=== PATIENT | female | born 1955 | race Caucasian/White ===

== ENCOUNTER 2016-10-26 06:41 | Day surgery (SDC) | payer BC ==
[~2016-10-26 06:41] MED LIST: ACETAMINOPHEN 1000MG/100 ML PREMIX IV ONE; CLINDAMYCIN 600MG/50ML PREMIX 50 ML IVPB ONE; FAMOTIDINE 20MG TABLET PO ONE; HYDROMORPHONE HCL 0.8 GM in 0.9 % SODIUM CHLORIDE 10ML VIA 40 ML IV ONE; HYDROMORPHONE HCL/PF 0.002 MG in 0.9 % SODIUM CHLORIDE 10ML VIA 0.998 ML IVP ONE; MECLIZINE 25 MG TABLET PO ONE; METOCLOPRAMIDE 10 MG TABLET PO ONE
--- NOTE | 2016-10-26 07:25 | History and Physical Report ---
DATE OF EVALUATION: 10/25/2016. CHIEF COMPLAINT AND HISTORY OF CHIEF COMPLAINT: This patient presented to the clinic approximately three to five days ago. She had been advised on 2015 that an unopened wound above the pump on the left side warranted relocation of the pump. According to the patient, over the last number of months since that evaluation, she had been hospitalized and was quite ill with pneumonia. She had been on multiple medications and had been hospitalized. When she presented three to five days ago, the wound had completely opened, and the upper aspect of the pump was showing. Careful examination of the wound showed no drainage or purulent discharge. Some mild erythematous changes of the skin were noted. Her spinal infusion is hydromorphone 6.0 mg per day. Although she was scheduled for a refill, no refill was performed and she was scheduled for today's removal and replacement. PAST MEDICAL HISTORY: Chronic bronchitis, hypertension, gastritis, degenerative arthritis. REVIEW OF SYSTEMS: The patient seems appropriate and in no acute distress and is afebrile. The remainder of the systems review shows headaches, blood pressure problems, peripheral edema, fibromyalgia, difficulty sleeping. SOCIAL HISTORY: Cigarette smoking. FAMILY HISTORY: Coronary artery disease, hypertension. PAST SURGICAL HISTORY: Cervical laminectomy fusion, carpal tunnel surgery, pump implant. ALLERGIES: To be provided. MEDICATIONS ON ADMISSION: To be provided. PHYSICAL EXAMINATION: General: Height is 5 feet, 3 inches. Weight is 170 pounds. Vital Signs: Unavailable. HEENT: Within normal limits. Lungs: Clear. Heart: Regular rate and rhythm. Abdomen: Nontender. Musculoskeletal: Examination of the musculoskeletal system shows the pump in the left posterior gluteal margin. The pump catheter port is easily visualized through the skin. There are some mild erythematous changes noted, but no suggestion or indication of drainage. She is currently on Levaquin which she has been taking for approximately one month. The midline catheter site incision is intact. Sensory valenzuela are intact. Neurologic: Cranial nerves are intact. IMPRESSIONS: 1. POSTCERVICAL LAMINECTOMY SYNDROME, ICD10 CODE M96.1. 2. CERVICAL RADICULITIS, ICD10 CODE M54.13. 3. INTRASPINAL INFUSION SYSTEM WITH HYDROMORPHONE WITH POUCH BREAKDOWN. PLANS: At this point I have indicated to the patient that she has several options which will not be known until we are in the operating room. If the pouch is opened, and there are no indications of obvious infection, the pump and the catheter will be removed from the left side. Cultures will be taken in the pump pouch, the catheter will be removed and also submitted for culturing, and cerebrospinal fluid analysis will also be performed. A pump will be placed on the opposite right side and a new catheter positioned. The infusion will then be started. On the other hand, if the pouch is opened and there is any suggestion of infection, the pump and catheter will be removed and no new pump will be placed. At that point she will be kept overnight and most likely in- house and monitored for withdrawal and managed with appropriate opiates and intravenous medications until stable. She will then be discharged, at which point the new pump catheter will be placed once the incision site is fully healed. All of the above have been suggested and recommended to the patient and will be evaluated on the date of the surgery. Farhad Gonzalez D.O. Date Time JOB NUMBER: [id number] cc: Reinaldo Cabrera
[2016-10-26] MEDS ORDERED: TEMAZEPAM 15 MG CAPSULE PO PRN ×2 (09:42)
[2016-10-26] MEDS ORDERED: AL HYDROX/MAG HYDROX 30ML UD PO PRN (09:42)
[2016-10-26] MEDS ORDERED: ACETAMINOPHEN 325 MG TAB PO PRN ×2 (09:42)
[2016-10-26] MEDS ORDERED: OXYCODONE/APAP 10MG-325MG TABLET PO PRN ×2 (09:42)
[2016-10-26] MEDS ORDERED: DIPHENHYDRAMINE HCL 25 MG CAPSULE PO PRN ×2 (09:42)
[2016-10-26] MEDS ORDERED: HYDROMORPHONE HCL 2 MG/ML VIAL IM PRN (09:42)
[2016-10-26] MEDS ORDERED: SENNOSIDES/DOCUSATE SODIUM UD CAPSULE PO PRN ×2 (09:42)
[2016-10-26] MEDS ORDERED: DIPHENHYDRAMINE HCL IV 50 MG/ML VIAL IVP PRN ×2 (09:42)
[2016-10-26] MEDS ORDERED: METOCLOPRAMIDE 10 MG TABLET PO PRN (09:42)
[2016-10-26] MEDS ORDERED: METOCLOPRAMIDE HCL 10 MG/2 ML VIAL IVP PRN (09:42)
[2016-10-26] MEDS ORDERED: HYDROMORPHONE HCL 1 MG/ML CPJ IM PRN (09:42)
[2016-10-26] MEDS ORDERED: HYDROCODONE/APAP 7.5/325MG TABLET PO PRN ×2 (09:42)
[2016-10-26] MEDS ORDERED: CHLORDIAZEPOXIDE 25 MG CAPSULE PO PRN (10:21)
[2016-10-26] MEDS ORDERED: ONDANSETRON 4 MG ODT TABLET SL PRN (10:22)
[2016-10-26] MEDS ORDERED: ALBUTEROL HFA 8 GM INHALER INH PRN (10:34)
[2016-10-26] MEDS: QUINAPRIL HCL 10 MG TABLET PO SCH (10:59)
[2016-10-26] MEDS: LEVOTHYROXINE SODIUM 100 MCG TABLET PO SCH (11:00)
[2016-10-26] MEDS: PIOGLITAZONE HCL 15 MG TABLET PO SCH (11:00)
[2016-10-26] MEDS: HYDROMORPHONE HCL 2MG TABLET PO PRN (14:56)
[2016-10-26] MEDS ORDERED: BUPIVACAINE 0.5% W/EPI MPF 30 ML VIAL IVP ONE (14:59)
[2016-10-26] MEDS ORDERED: CLINDAMYCIN 600MG/4 ML VIAL IV ONE (14:59)
[2016-10-26] MEDS ORDERED: HYDROMORPHONE HCL 2 MG/ML VIAL IV ONE (14:59)
[2016-10-26] MEDS ORDERED: LIDOCAINE 1% W/EPI 1:200,000 MPF 30ML SQ ONE (14:59)
[2016-10-26] MEDS: RINGERS SOLUTION,LACTATED 1,000 ML IV SCH ×2 (15:00→17:45)
[2016-10-26 16:06] LABS: CSF APPEARANCE CLEAR; CSF COLOR COLORLESS; CSF RBC 0 /mm3; CSF WBC 0 /uL
[2016-10-26] MEDS: CLINDAMYCIN 600MG/50ML PREMIX 50 ML IVPB SCH ×2 (16:20→23:40)
[2016-10-26] MEDS ORDERED: PROPOFOL 10 MG/ML VIAL IV ONE (16:22)
[2016-10-26] MEDS ORDERED: FENTANYL PF 100MCG/2ML VIAL IV ONE (16:22)
[2016-10-26] MEDS ORDERED: MIDAZOLAM HCL 2MG/2ML VIAL IV ONE (16:22)
[2016-10-26] MEDS ORDERED: *PACU ONLY* KETAMINE HCL 10 MG/ML (20ML) VIAL IV ONE (16:22)
[2016-10-26] MEDS ORDERED: LIDOCAINE 2% MDV (20MG/ML) 20ML VIAL IV ONE (16:22)
[2016-10-26] MEDS ORDERED: CYCLOBENZAPRINE 10MG TABLET PO SCH (22:00)
[2016-10-26] MEDS ORDERED: ATORVASTATIN 20 MG TABLET PO SCH (22:00)
[2016-10-27] MEDS: RINGERS SOLUTION,LACTATED 1,000 ML IV SCH ×2 (03:05→16:52)
[2016-10-27] MEDS: LEVOTHYROXINE SODIUM 100 MCG TABLET PO SCH (06:21)
[2016-10-27] MEDS: HYDROMORPHONE HCL 2MG TABLET PO PRN ×2 (06:23→14:54)
[2016-10-27] MEDS: CLINDAMYCIN 600MG/50ML PREMIX 50 ML IVPB SCH (09:27)
[2016-10-27] MEDS: PIOGLITAZONE HCL 15 MG TABLET PO SCH (09:32)
[2016-10-27] MEDS: QUINAPRIL HCL 10 MG TABLET PO SCH (09:33)
--- NOTE | 2016-10-27 17:01 | Operative Note - Ferro ---
DATE OF SURGERY: 10/26/16 PREOPERATIVE DIAGNOSES: 1. POST CERVICAL LAMINECTOMY SYNDROME, ICD-10 CODE = M96.1. 2. CERVICAL RADICULITIS, ICD-10 CODE = M54.13. 3. IMPLANTED SPINAL INFUSION HYDROMORPHONE 6 MG A DAY. 4. POUCH VIOLATION WITH WOUND OPENING INTO PUMP POUCH. OPERATION: 1. FLUOROSCOPICALLY-GUIDED INCISION, SUBCUTANEOUS DISSECTION, AND IDENTIFYING SPINAL CATHETER MIDLINE INCISION L3/4. CULTURES, AEROBIC/ANAEROBIC. 2. CATHETER CUT, 25-GAUGE NEEDLE INSERTED INTO CATHETER FOUR SYRINGES 1 ML EACH FOR CSF ANALYSIS INCLUDING CULTURES. 3. REMOVAL OF INDWELLING SPINAL CATHETER, PURSESTRING PLACED. RESECTION RIGHT ABDOMINAL QUADRANT PUMP CATHETER. 4. INCISION, SUBCUTANEOUS DISSECTION, AND REMOVAL OF SUBCUTANEOUS PUMP AT LEFT POSTERIOR GLUTEAL MARGIN. CATHETER COMPONENTS REMOVED AND SUBMITTED FOR CULTURE. 5. IRRIGATION. 6. CLOSURE OF MIDLINE INCISION FASCIAL CLOSURE, DARRELL FOR SKIN. 7. RESECTING OF EXTERNAL WOUND INTO PUMP POUCH. CLOSURE WITH NYLON SUTURE. CLOSURE OF PUMP POUCH VICRYL FOR FASCIA, DARRELL FOR SKIN. DRESSINGS PLACED. SURGEON: GREOGRY ORTEGA D.O. ANESTHESIA: LOCAL SEDATION. ANESTHESIA PROVIDER: FRANTZ DICK CRNA. INDICATION: This patient was seen had a wound, which had not opened over the pump at the left posterior gluteal margin. At that time, she was advised to relocate the pump before the wound opened violating the pouch. The patient had not been seen since that evaluation, , until approximately one week ago in the office, which was approximately 10/21/16. At that evaluation , it was note the wound had completely opened and a component to the pump and catheter interface was exposed and protruding through the skin. She had been hospitalized and been on antibiotic therapy for pneumonitis and presented asymptomatic and afebrile, still on antibiotics. At the time, it was evaluated and felt that one of two possibilities would exist, which would have to be acted on immediately. Either the entire system removed or possibly entire system removed with replacement to the opposite side of the body. She arrived today understanding the consequence of either including if the system was removed, withdrawal and medication management requirements. PROCEDURE: Intravenous line, vital sign monitoring, IV sedation, prepped and draped in sterile technique. Patient position on the operating room table, prone. Sterile prep. Sterile technique. Under imaging, the midline spinal catheter placement at L3/4, incision infiltrated, incision made,and subcutaneous dissection was opening the catheter pouch. Aerobic and anaerobic cultures were taken. The catheter was then freed from the scar tissue and cut. At that point, a 25-gauge needle was inserted into the catheter and four tubes for CSF analysis, 1 mL per tube, was drawn through the spinal catheter. At that point, the catheter was clamped, pursestring suture placed, and then the catheter was removed intact, tip of catheter identified. Catheter submitted for cultures. Antibiotic irrigation. Bovie for hemostasis. At the pouch, there was no obvious indications of drainage or infection. The incision was closed with Vicryl for fascia, darrell for skin. At the left posterior gluteal margin pump pouch, the incision infiltrated, incision made, and subcutaneous dissection was conducted to the pump. The pump was then exteriorized. No Dacron sleeve. The pump catheter was removed and submitted for culture. Cultures have been taken, aerobic and anaerobic, as soon as the pouch was opened. Pump was removed from the pouch and also submitted for cultures. There were no obvious indications of abscess or infection. Antibiotic irrigation and Bovie for hemostasis. The penetrating wound was debrided and a Vicryl closure on the inner surface. The incision was then closed Vicryl for the fascia, darrell for skin. The wound was closed with nylon suture. Dressings placed. She was transported to the Recovery Room stable. No side-effects from the procedure. DISCHARGE INSTRUCTIONS IN THE MORNIN. This patient will be kept in-house for at least 24-48 hours at which point we will manage withdrawal symptoms with appropriate medications. Withdrawal will be managed along with the standard postoperative medications, Hydromorphone or oral Dilaudid 2 mg one every 6 hours along with Zofran 4 mg one every 4-6 hours for the nauseousness and Librium 25 mg one every 6 hours for miscellaneous withdrawal symptoms. 2. All standard medications resumed. 3. She will be monitored until stable at which point she will be discharged to home and withdrawal or other symptoms managed on an outpatient basis through the clinic. All other instructions provided, numbers to contact, problems given. She had tolerated the procedure without difficulty and was stable. GREGORY ORTEGA D.O. Date & Time cc: Dr. Tex Clark JOB NUMBER: [id number] MTDD
== END 2016-10-27 17:05 | disposition home or self-care (01) ==
LOC: SUR 06:41 → MEDSURG 10:38 → SUR 10-27 17:05
PROVIDERS: ATTEND Pain Medicine Interventional Pain Medicine
DX: T85.890A Other specified complication of nervous system prosthetic devices, implants and grafts, initial encounter (principal); M96.1 Postlaminectomy syndrome, not elsewhere classified; M54.13 Radiculopathy, cervicothoracic region; E11.9 Type 2 diabetes mellitus without complications; J44.9 Chronic obstructive pulmonary disease, unspecified
CPT/HCPCS: 62365; 62355; 13160; 00300; 84157; 36416; 82948; 89051; 82945; 82438; 85002; Q9967; J3490 ×2; J1170 ×2; J3010; J7120

== ENCOUNTER 2016-12-14 07:53 | Day surgery (SDC) | payer BC ==
[~2016-12-14 07:53] MED LIST changes: +ACETAMINOPHEN 1,000 MG/100 ML BTL IV ONE; -ACETAMINOPHEN 1000MG/100 ML PREMIX IV ONE; -CLINDAMYCIN 600MG/50ML PREMIX 50 ML IVPB ONE; +CLINDAMYCIN 600MG/50ML PREMIX 600 MG/50 ML BAG IVPB ONE; -HYDROMORPHONE HCL 0.8 GM in 0.9 % SODIUM CHLORIDE 10ML VIA 40 ML IV ONE; +HYDROMORPHONE HCL IV ONE; +SODIUM CHLORIDE 0.9% IV ONE
--- NOTE | 2016-12-14 08:09 | History and Physical - Ferro ---
CHIEF COMPLAINT/HISTORY OF CHIEF COMPLAINT: This patient with a history of intractable post cervical laminectomy syndrome had an intraspinal infusion system in place which had to be removed because of pouch breakdown. She is here for replacement of the system. PAST MEDICAL HISTORY: Chronic bronchitis, hypertension, gastritis, and degenerative arthritis. PAST SURGICAL HISTORY: Cervical spine fusion, carpal tunnel surgery, pump implant and removal. MEDICATIONS ON ADMISSION: List to be provided. ALLERGIES: NAPROXEN, ERYTHROMYCIN, AND AMOXICILLIN. FAMILY/PSYCHOSOCIAL HISTORY: Social history - Smoking. Family history - Coronary artery disease and hypertension. SYSTEMS REVIEW: The patient is appropriate in no acute distress. The remainder of the systems review is positive for headaches, blood pressure problems, peripheral edema, fibromyalgia, and difficulty sleeping. PHYSICAL EXAMINATION: Height is 5'3", weight is 170. No vital signs. HEENT: Within normal limits. LUNGS: Clear. HEART: Regular rate and rhythm. ABDOMEN: Nontender. MUSCULOSKELETAL: Examination of the musculoskeletal system shows the pump pouch at the left posterior gluteal margin. The incisional site is intact. Midline incision approximating the L3-L4 level is intact. Sensory valenzuela are intact. NEUROLOGIC: Cranial nerves are intact. IMPRESSION: 1. POST CERVICAL LAMINECTOMY SYNDROME, ICD10 CODE M96.1. 2. CERVICAL RADICULITIS, ICD10 CODE M54.16 AND M54.17. 3. IMPLANTED SPINAL OPIOID INFUSION SYSTEM TO BE PLACED. PLAN: The patient is here for implantation of a permanent system or replacement. All of the cultures from the previous removal are negative. Our plan will be to place the device above the belt line rather than in the posterior gluteal margin hopefully reducing the stress on the incision. She will be started with Hydromorphone at the basal rate. The procedure will be considered outpatient although an overnight stay will be evaluated because of the dural puncture and the epidural blood patch. GREGORY ORTEGA D.O. Date & Time JOB NUMBER: [id number] MTDD
[2016-12-14] MEDS ORDERED: RINGERS SOLUTION,LACTATED 1,000 ML IV PRN (12:25)
[2016-12-14] MEDS ORDERED: HYDROCODONE/APAP 7.5/325MG TABLET PO PRN ×2 (12:55)
[2016-12-14] MEDS ORDERED: DIPHENHYDRAMINE HCL 25 MG CAPSULE PO PRN ×2 (12:55)
[2016-12-14] MEDS ORDERED: HYDROMORPHONE HCL 2 MG/ML VIAL IM PRN (12:55)
[2016-12-14] MEDS ORDERED: ACETAMINOPHEN 325 MG TAB PO PRN ×2 (12:55)
[2016-12-14] MEDS ORDERED: OXYCODONE/APAP 10MG-325MG TABLET PO PRN ×2 (12:55)
[2016-12-14] MEDS ORDERED: AL HYDROX/MAG HYDROX 30ML UD PO PRN (12:55)
[2016-12-14] MEDS ORDERED: METOCLOPRAMIDE HCL 10 MG/2 ML VIAL IVP PRN (12:55)
[2016-12-14] MEDS ORDERED: SENNOSIDES/DOCUSATE SODIUM UD CAPSULE PO PRN ×2 (12:55)
[2016-12-14] MEDS ORDERED: METOCLOPRAMIDE 10 MG TABLET PO PRN (12:55)
[2016-12-14] MEDS ORDERED: DIPHENHYDRAMINE HCL IV 50 MG/ML VIAL IVP PRN ×2 (12:55)
[2016-12-14] MEDS ORDERED: HYDROMORPHONE HCL 1 MG/ML CPJ IM PRN (12:55)
[2016-12-14] MEDS ORDERED: TEMAZEPAM 15 MG CAPSULE PO PRN ×2 (12:55)
[2016-12-14] MEDS ORDERED: CLINDAMYCIN 600MG/4 ML VIAL IV ONE (14:31)
[2016-12-14] MEDS ORDERED: LIDOCAINE 1% W/EPI 1:200,000 MPF 30ML SQ ONE (14:31)
[2016-12-14] MEDS ORDERED: BUPIVACAINE 0.5% W/EPI MPF 30 ML VIAL IVP ONE (14:31)
[2016-12-14] MEDS ORDERED: LIDOCAINE 2% MDV (20MG/ML) 20ML VIAL IV ONE (15:58)
[2016-12-14] MEDS ORDERED: MIDAZOLAM HCL 2MG/2ML VIAL IV ONE (15:58)
[2016-12-14] MEDS ORDERED: FENTANYL PF 100MCG/2ML VIAL IV ONE (15:58)
[2016-12-14] MEDS ORDERED: PROPOFOL 10 MG/ML VIAL IV ONE (15:58)
[2016-12-14] MEDS ORDERED: HYDROMORPHONE HCL 2 MG/ML VIAL IV ONE (15:58)
[2016-12-14] MEDS ORDERED: CLINDAMYCIN 600MG/50ML PREMIX 600 MG/50 ML BAG IVPB SCH (17:45)
--- NOTE | 2016-12-20 08:51 | RADIOLOGY REPORT ---
EXAM: THORACOLUMBAR SPINE HISTORY: PAIN PUMP IMPLANT. TECHNIQUE: A single AP view of the thoracolumbar spine was obtained. Comparison: AP lumbar spine 10/22/08. Report of the prior study is not available within PACS. FINDINGS: There is a new battery pack overlying the right mid abdomen with a wire extending from this to the L3 level and ascending up to the T12 level. This presumably corresponds to the history of a pain pump implant. Note is also made of a battery pack left upper quadrant with an associated wire extending up into the upper thoracic region above the superior extent of the film which is at the approximate T1 level. IMPRESSION: 1. APPARENT PAIN PUMP DEVICE RIGHT MID ABDOMEN WITH AN ASSOCIATED CATHETER/ WIRE EXTENDING UP TO THE T12 LEVEL. 2. METALLIC BATTERY PACK LEFT UPPER QUADRANT WITH THE ASSOCIATED CATHETER/WIRE EXTENDING UP INTO THE UPPER THORACIC REGION ABOVE THE SUPERIOR EXTENT OF THE FILM. JOB NUMBER: [id number] MTDD
--- NOTE | 2016-12-20 15:52 | Operative Note ---
DATE OF SURGERY: 12/14/2016 PREOPERATIVE DIAGNOSES: 1. Post cervical laminectomy syndrome, ICD10 code M96.1. 2. Cervical radiculitis, ICD10 code M54.13. OPERATION: 1. Fluoroscopic-guided access spinal space at L3-4 right of the midline with 20 gauge spinal needle bevel long axis paramedian approach. 2. Placement of spinal catheter advanced midline under fluoroscopic imaging, access spinal space using AP and lateral views to ensure no trauma. Catheter placed upper end plate T12. 3. Diagnostic myelography with radiologic supervision and interpretation. 4. Spinal opioid bolus hydromorphone 0.002 mg spinal space. 5. Incision, subdissection, and anchoring spinal catheter to supraspinous fascia using anchor device and nonabsorbable suture. 6. Incision, subdissection, and creation of subcutaneous pouch right flank for placement of pump identified as [employer] 20 mL programmable, site picked by patient. 7 .Tunneling between spinal catheter pouch into flank pouch resecting and revising catheter and then interface to pump by way of connector. 8. Placement of pump into pouch, securing to posterior fascia using nonabsorbable suture pump eyelets 2 points. 9. Closure of incisions with Vicryl for fascia, running subcuticular Vicryl for skin, Dermabond closure. 10. Programming of pump to deliver by continuous infusion hydromorphone 0.05 mg per day. 11. Epidural blood patch at L4-5 using 18 gauge Tuohy needle after loss of resistance access. Surgeon: Farhad Gonzalez DO Anesthesia: Local with sedation. Anesthesia Provider: Nicolás Sampson Indication: This patient presents with a history of post laminectomy radiculitis. A previous pump was removed because of breakdown of the pouch at the left posterior gluteal margin. After all appropriate cultures and labs were negative, by her request she presented for reimplantation of the device. Site for pump and catheter placement will be opposite side to the right than the previous left. Flank pouch had been selected to avoid any breakdown at the posterior gluteal margin because of anatomic consideration. PROCEDURE: Intravenous line, vital sign monitoring, IV sedation by Anesthesia. Patient positioned in the operating room table prone. Sterile prep, sterile technique. The spinal catheter insertion site at L3-4 marked, infiltrated using a spinal needle 20 gauge paramedian approach bevel long axis. Spinal space was accessed. Access accomplished by AP and lateral imaging to ensure safety. Spinal catheter was then advanced to position midline with the tip of the catheter approximately at T12. Diagnostic myelography was performed. Resulting flow characteristics were smooth and linear in the space. No obstruction or redirection. With positive flow characteristics, a bolus of hydromorphone in the spinal space 0.002 mg was given. The skin above and below the needle was infiltrated. An incision made and subcutaneous dissection was then conducted at supraspinous fascia. A pursestring suture was placed to prevent CSF loss and the needle was removed. The catheter was then anchored to the supraspinous fascia using an anchor device and nonabsorbable suture. At the right flank, a site picked by the patient for the pump identified as a [employer] 20 mL programmable. Skin infiltrated, incision made, and subcutaneous dissection was conducted to form a pouch of suitable size and depth for the pump. Antibiotic irrigation and Bovie for hemostasis. A tunneling tool was used to carry the catheter into the pump pouch. The catheter was then resected and revised. A new pump placed onto the field filled with hydromorphone at 0.5 mg/mL concentration, 20 mL. The revised catheter was then interfaced w the pump, placed into the pouch, and secured to the posterior fascia using a nonabsorbable suture 2 point pump eyelets. Antibiotic irrigation, Bovie for hemostasis. Diagnostic myelography was then performed through the access port confirming integrity of the system showing all connections intact and showing appropriate flow characteristics in the spinal space upper end plate T12. Both incisions were then closed with Vicryl for fascia and running subcuticular Vicryl for skin. A Dermabond closure. At L4-5 one level below the dural puncture, skin infiltrated and then an 18 gauge Tuohy needle with loss of resistance in the epidural space. Then 20 mL of autologous blood drawn sterile technique left antecubital, placed onto the field, then a blood patch was performed at this level with this blood drawn with sterile technique. All areas were cleaned after the needle was removed. The dressing was reinforced. She was transported to the recovery room flat, pillow under her knees where she will lie flat for 4 hours, then slowly elevate for one. DISCHARGE INSTRUCTIONS: 1. Site is to remain clean and dry. No showering or bathing in any way although the Dermabond will allow showering in 24 hours. 2. Standard medications resumed including Levaquin the antibiotic 500 mg once a day for 14 days. 3. Spinal opioid side effects including respiratory depression, nausea, vomiting, constipation, urinary retention, lightheadedness and rash have all been discussed and reviewed. The blood patch will require lying flat for 4 hours, slowly elevated for 1. If she is dischargeable and can meet all the diagnostic criteria, she will be discharged. If not, she will be kept overnight and discharged in the morning with the above instructions. The office will contact the patient at home in 3-5 days to and set up an evaluation to evaluate the sites. CC: Dr. Tex MATHEWS
== END 2016-12-14 18:15 | disposition home or self-care (01) ==
LOC: SUR 07:53 → MEDSURG 11:32 → SUR 18:15
PROVIDERS: ATTEND Pain Medicine Interventional Pain Medicine
DX: M96.1 Postlaminectomy syndrome, not elsewhere classified (principal); M54.16 Radiculopathy, lumbar region; M54.17 Radiculopathy, lumbosacral region; I10 Essential (primary) hypertension; Z79.84 Long term (current) use of oral hypoglycemic drugs; E78.00 Pure hypercholesterolemia, unspecified; E03.9 Hypothyroidism, unspecified
CPT/HCPCS: 62350; 62362; 00630; 62367; 72020; 94760; Q9967; J1170 ×2; J3010